=== PATIENT | male | born 1980 | race African-American/Black ===

== ENCOUNTER 2018-08-14 10:18 | Emergency (ER) | payer BC ==
[~2018-08-14] VITALS: Ht 193 cm; Wt 97.1 kg
[2018-08-14 10:38] VITALS: BP 137/82
[2018-08-14] MEDS ORDERED: IV NORMAL SALINE 1,000ML 1,000 ML IV SCH (10:44)
--- NOTE | 2018-08-14 10:56 | RAD ---
Chest radiograph 08/14/2018 10:44 AM INDICATION: Fever for 4 days COMPARISON: None available TECHNIQUE: Frontal and lateral views of the chest are provided. FINDINGS: The cardiomediastinal silhouette is within normal limits. There are no pleural effusions. There is no pulmonary vascular congestion. There is no pneumothorax. The lungs are clear. No significant osseous abnormality is identified. IMPRESSION: No acute cardiopulmonary process. Electronically signed by: Marcia Girard MD (08/14/2018 10:53 AM) [facility]
[2018-08-14 11:24] LABS: BASO % 1 % (0-3); EOS % 0 % (0-3); HEMOGLOBIN 13.4 g/dL (13.0-17.5); LYMPH % 22 % (24-48); MEAN CORPUSCULAR HEMOGLOBIN 26 pg (25-35); MEAN CORPUSCULAR HGB CONC 33 g/dL (31-37); MEAN CORPUSCULAR VOLUME 80 fL (79-100); MONO # 0.7 x10^3/uL (0.0-1.1); MONO % 17 % (0-9); NEUT # 2.6 x10^3uL (1.8-7.7); NEUT % 60 % (31-73); PLATELET COUNT 145 x10^3/uL (140-400); RED BLOOD COUNT 5.12 x10^6/uL (4.30-5.70); RED CELL DISTRIBUTION WIDTH 14.1 % (11.5-14.5); WHITE BLOOD COUNT 4.3 x10^3/uL (4.0-11.0)
[2018-08-14 11:37] LABS: MONONUCLEOSIS PATIENT NEGATIVE (NEGATIVE)
[2018-08-14] MEDS ORDERED: KETOROLAC 30 MG/ML VIAL. ONE (12:01)
[2018-08-14] MEDS ORDERED: KETOROLAC 30 MG/ML VIAL. IV ONE (12:25)
[2018-08-14 12:37] LABS: ALBUMIN 3.3 g/dL (3.4-5.0); ALBUMIN/GLOBULIN RATIO 0.9 (1.0-1.7); CALCIUM 8.8 mg/dL (8.5-10.1); CREATININE 1.3 mg/dL (0.7-1.3); GFR 74.4; POTASSIUM 3.6 mmol/L (3.5-5.1); TOTAL BILIRUBIN 0.1 mg/dL (0.2-1.0); TOTAL PROTEIN 7.1 g/dL (6.4-8.2)
[2018-08-14] MEDS ORDERED: HYDR-3165 PO (13:15)
--- NOTE | 2018-08-14 13:15 | PHYS DOC ---
Past History Past Medical History: No Pertinent History Past Surgical History: No Surgical History Alcohol Use: None Drug Use: None Adult General Chief Complaint Chief Complaint: FEVER HPI HPI Patient is a 37 year old male who presents with complaining of fever and headache and body ache. Patient was in [place] and returned home last night and complaining of subjective fever for the last 4 days with headache and body ache with nausea without cough, sore throat, nasal congestion neck stiffness, confusion, sick contact. [facility] and had negative strep and flu test and sent to ER for evaluation of fever and headache and nausea neck stiffness. The patient states he had Tylenol at 5:30 this morning. Review of Systems Review of Systems Constitutional: Reports fever Eyes: Denies change in visual acuity, redness, or eye pain [] HENT: Denies nasal congestion or sore throat [] Respiratory: Denies cough or shortness of breath [] Cardiovascular: No additional information not addressed in HPI [] GI: Denies abdominal pain, vomiting, bloody stools or diarrhea, reports nausea [] : Denies dysuria or hematuria [] Musculoskeletal: Denies back pain or joint pain [] Integument: Denies rash or skin lesions [] Neurologic: Reports headache, denies focal weakness or sensory changes [] Endocrine: Denies polyuria or polydipsia [] All other systems were reviewed and found to be within normal limits, except as documented in this note. Current Medications Current Medications Current Medications Medications (Trade) Dose Ordered Sig/Kaylee Start Time Stop Time Status Last Admin Dose Admin Ketorolac Tromethamine (Toradol 30mg Vial) 30 mg STK-MED ONCE 08/14/18 12:01 08/14/18 12:02 DC Sodium Chloride 1,000 ml @ 1,000 mls/hr Q1H 08/14/18 10:44 08/14/18 11:43 DC 08/14/18 11:14 1,000 MLS/HR Allergies Allergies Allergies Coded Allergies Type Severity Reaction Last Updated Verified No Known Drug Allergies 08/14/18 No Physical Exam Physical Exam Constitutional: Well developed, well nourished, no acute distress, non-toxic appearance, afebrile. [] HENT: Normocephalic, atraumatic, bilateral external ears normal, oropharynx moist, no oral exudates, nose normal. [] Eyes: PERRLA, EOMI, conjunctiva normal, no discharge. [] Neck: Normal range of motion, no tenderness, supple, no stridor, no meningeal sign. [] Cardiovascular:Heart rate regular rhythm, no murmur [] Lungs & Thorax: Bilateral breath sounds clear to auscultation [] Abdomen: Bowel sounds normal, soft, no tenderness, no masses, no pulsatile masses. [] Skin: Warm, dry, no erythema, no rash. [] Back: No tenderness, no CVA tenderness. [] Extremities: No tenderness, no cyanosis, no clubbing, ROM intact, no edema. [] Neurologic: Alert and oriented X 3, normal motor function, normal sensory function, no focal deficits noted. [] Psychologic: Affect normal, judgement normal, mood normal. [] Current Patient Data Vital Signs Vital Signs Date Time Temp Pulse Resp B/P (MAP) Pulse Ox O2 Delivery O2 Flow Rate FiO2 08/14/18 10:38 99.2 82 98 08/14/18 10:35 18 137/82 (100) Room Air Lab Results Laboratory Tests Test 08/14/18 11:05 White Blood Count 4.3 x10^3/uL (4.0-11.0) Red Blood Count 5.12 x10^6/uL (4.30-5.70) Hemoglobin 13.4 g/dL (13.0-17.5) Hematocrit 41.0 % (39.0-53.0) Mean Corpuscular Volume 80 fL (79-100) Mean Corpuscular Hemoglobin 26 pg (25-35) Mean Corpuscular Hemoglobin Concent 33 g/dL (31-37) Red Cell Distribution Width 14.1 % (11.5-14.5) Platelet Count 145 x10^3/uL (140-400) Neutrophils (%) (Auto) 60 % (31-73) Lymphocytes (%) (Auto) 22 % (24-48) L Monocytes (%) (Auto) 17 % (0-9) H Eosinophils (%) (Auto) 0 % (0-3) Basophils (%) (Auto) 1 % (0-3) Neutrophils # (Auto) 2.6 x10^3uL (1.8-7.7) Lymphocytes # (Auto) 1.0 x10^3/uL (1.0-4.8) Monocytes # (Auto) 0.7 x10^3/uL (0.0-1.1) Eosinophils # (Auto) 0.0 x10^3/uL (0.0-0.7) Basophils # (Auto) 0.0 x10^3/uL (0.0-0.2) Prothrombin Time 10.9 SEC (9.4-11.4) Prothrombin Time INR 1.1 (0.9-1.1) Sodium Level 142 mmol/L (136-145) Potassium Level 3.6 mmol/L (3.5-5.1) Chloride Level 104 mmol/L (98-107) Carbon Dioxide Level 31 mmol/L (21-32) Anion Gap 7 (6-14) Blood Urea Nitrogen 9 mg/dL (8-26) Creatinine 1.3 mg/dL (0.7-1.3) Estimated GFR (Cockcroft-Gault) 74.4 BUN/Creatinine Ratio 7 (6-20) Glucose Level 98 mg/dL (70-99) Lactic Acid Level 0.8 mmol/L (0.4-2.0) Calcium Level 8.8 mg/dL (8.5-10.1) Total Bilirubin 0.1 mg/dL (0.2-1.0) L Aspartate Amino Transferase (AST) 24 U/L (15-37) Alanine Aminotransferase (ALT) 22 U/L (16-63) Alkaline Phosphatase 68 U/L (46-116) Total Protein 7.1 g/dL (6.4-8.2) Albumin 3.3 g/dL (3.4-5.0) L Albumin/Globulin Ratio 0.9 (1.0-1.7) L Heterophil Agglutinins Negative (NEGATIVE) EKG EKG [] Radiology/Procedures Radiology/Procedures [address] [address] IMAGING REPORT Signed PATIENT: RADHA BARAHONA ACCOUNT: [id number] : 1980 LOCATION: ER AGE: 37 SEX: M EXAM STATUS: REG ER ORD. PHYSICIAN: BUFFY MESA MD REASON: fever PROCEDURE: CHEST PA & LATERAL Chest radiograph 08/14/2018 10:44 AM INDICATION: Fever for 4 days COMPARISON: None available TECHNIQUE: Frontal and lateral views of the chest are provided. FINDINGS: The cardiomediastinal silhouette is within normal limits. There are no pleural effusions. There is no pulmonary vascular congestion. There is no pneumothorax. The lungs are clear. No significant osseous abnormality is identified. IMPRESSION: No acute cardiopulmonary process. Electronically signed by: Tea Parra MD (08/14/2018 10:53 AM) [facility] DICTATED AND SIGNED BY: TEA PARRA MD DATE: 08/14/18 1050 CC: KATIE REYNOLDS MD; BUFFY MESA MD ~ Course & Med Decision Making Course & Med Decision Making Pertinent Labs and Imaging studies reviewed. (See chart for details) Evaluation of patient in ER showed 37-year-old male patient with complaining of subjective fever for 4 days and headache and myalgia. Patient had unremarkable physical exam and CBC and CMP and chest x-ray and UA negative mono skin. Patient had [facility]. Patient did not have vaginal sign or neck stiffness without complaining of neck pain. Plan discharge patient home to diagnose of viral illness and instruction to take Tylenol or ibuprofen as needed for fever and pain. The patient was advised to follow-up with his primary care physician or return to ER if not getting better. Dragon Disclaimer Dragon Disclaimer This electronic medical record was generated, in whole or in part, using a voice recognition dictation system. Departure Departure: Impression: Primary Impression: Nonspecific syndrome suggestive of viral illness Disposition: HOME, SELF-CARE (at 1313) Condition: IMPROVED Referrals: KATIE REYNOLDS MD (PCP) Patient Instructions: Fever, Adult, Viral Syndrome Additional Instructions: Drink plenty of liquids Follow-up with your primary care physician in 3-5 days Return to ER if not getting better Scripts Hydrocodone Bit/Acetaminophen (NORCO 5-325 TABLET) 1 Each Tablet 1 TAB PO PRN Q6HRS PRN for PAIN, #14 TAB 0 Refills Prov: BUFFY MESA MD 08/14/18 BUFFY MESA MD Aug 14, 2018 13:15
== END 2018-08-14 13:24 | disposition home or self-care (01) ==
LOC: ER 10:18
DX: B34.9 Viral infection, unspecified (principal)
CPT/HCPCS: 36415; 71046; 80053; 83605; 85025; 85610; 86308; 87040; 96374; 99284; J1885; 87077; 87205; J7030